=== PATIENT | female | born 1975 | race Caucasian/White ===

== ENCOUNTER 2019-07-23 18:08 | Emergency (ER) | payer MEDICAID ==
[2019-07-23] MEDS: HYDROCODONE/APAP (5/325) TAB PO (19:04)
[2019-07-23] MEDS: ONDANSETRON (ODT) 4 MG TAB ODT (19:04)
== END 2019-07-23 21:34 | disposition home or self-care (01) ==
LOC: E/R 18:08
DX: J32.9 Chronic sinusitis, unspecified (principal); R40.2142 Coma scale, eyes open, spontaneous, at arrival to emergency department; R40.2252 Coma scale, best verbal response, oriented, at arrival to emergency department; R40.2362 Coma scale, best motor response, obeys commands, at arrival to emergency department; F43.9 Reaction to severe stress, unspecified
CPT/HCPCS: 70450; 81025; 99284-25